=== PATIENT | male | born 1965 | race Two or more races ===

== ENCOUNTER 2022-12-03 16:06 | Emergency (ER) | payer OTHER ==
[~2022-12-03] VITALS: Ht 167.6 cm; Wt 79.4 kg
[2022-12-03] MEDS ORDERED: DICLOFENAC SODI75 MG PO (17:59)
[2022-12-03] MEDS ORDERED: NORFLEX100MG PO (17:59)
== END 2022-12-03 18:24 | disposition home or self-care (01) ==
LOC: ER 16:06
DX: M54.89 Other dorsalgia (principal)

== ENCOUNTER 2022-12-19 05:45 | Day surgery (SDC) | payer OTHER ==
[~2022-12-19] VITALS: Ht 167.6 cm; Wt 79.4 kg
[~2022-12-19 05:45] MED LIST: CANDESARTAN CILE8 M1 PO; DICLOFENAC SODI75 MG PO; NORFLEX100MG PO
== END 2022-12-19 16:20 | disposition home or self-care (01) ==
LOC: CIR.AMB 05:45
PROVIDERS: ATTEND Specialist
DX: K40.90 Unilateral inguinal hernia, without obstruction or gangrene, not specified as recurrent (principal); I10 Essential (primary) hypertension; Z20.822 Contact with and (suspected) exposure to COVID-19
CPT/HCPCS: 49505; C1781

== ENCOUNTER 2023-03-01 08:13 | Emergency (ER) | payer OTHER ==
[~2023-03-01] VITALS: Ht 167.6 cm; Wt 77.1 kg
== END 2023-03-01 14:38 | disposition home or self-care (01) ==
LOC: ER 08:13
DX: S76.912A Strain of unspecified muscles, fascia and tendons at thigh level, left thigh, initial encounter (principal); S76.911A Strain of unspecified muscles, fascia and tendons at thigh level, right thigh, initial encounter; X58.XXXA Exposure to other specified factors, initial encounter; Y93.9 Activity, unspecified; Y92.89 Other specified places as the place of occurrence of the external cause; Y99.9 Unspecified external cause status

== ENCOUNTER 2023-06-17 00:22 | Inpatient (IN) | payer OTHER ==
[~2023-06-17] VITALS: Ht 167.6 cm; Wt 86.2 kg
[2023-06-17] MEDS ORDERED: HYDROCHLOROTH12.5 MG (00:59)
[2023-06-17 08:54] LABS: HEMATOCRIT 37.5 % (39.0-48.0); HEMOGLOBIN 11.9 g/dL (13-16.00); MEAN CELL VOLUME 74.2 fL (80.0-100.00); MEAN CORPUSCULAR HEMOGLOBIN 23.5 pg (27.00-32.0); MEAN CORPUSCULAR HGB CONC 31.6 g/dl (32.0-36.0); PLATELET COUNT 402 K/uL (150-450); RED BLOOD COUNT 5.05 M/uL (4.00-6.00)
[2023-06-17 09:40] LABS: CALCIUM 9.5 mg/dL (8.5-10.1); CREATININE SERUM 0.92 mg/dL (0.70-1.30); GFR 84.2; POTASSIUM 3.12 mEq/L (3.5-5.1)
[2023-06-17 22:36] LABS: ABG PH 7.474 (7.35-7.45); ABG pCO2 36.8 mmHg (35-45); SaO2 97.7 %
[2023-06-17 22:37] LABS: BICARBONATE 26.4 mmol/l (23-25); Tco2 27.5 mmol/l; allen test SATISFACTORY; o2 21 %; puncture site RADIAL RIGHT
[2023-06-18 03:10] LABS: ALBUMIN 3.9 gm/dL (3.4-5.0); CALCIUM 9.5 mg/dL (8.5-10.1); CKMB 2.4 NG/ML (0.5-3.6); CREATININE SERUM 0.98 mg/dL (0.70-1.30); GFR 78.28; PHOSPHOROUS 4.3 mg/dL (2.5-4.9)
[2023-06-18 03:16] LABS: POTASSIUM 2.99 mEq/L (3.5-5.1)
[2023-06-18 06:27] LABS: HEMATOCRIT 35.9 % (39.0-48.0); HEMOGLOBIN 11.9 g/dL (13-16.00); MEAN CELL VOLUME 74.1 fL (80.0-100.00); MEAN CORPUSCULAR HEMOGLOBIN 24.5 pg (27.00-32.0); PLATELET COUNT 396 K/uL (150-450); RED BLOOD COUNT 4.85 M/uL (4.00-6.00); RED CELL DISTRIBUTION WIDTH 17.1 % (11.5-14.5)
[2023-06-18 06:47] LABS: INR 1.06; PARTIAL THROMBOPLASTIN TIME 33.9 SECONDS (22.0-34.0); PROTHROMBIN TIME 11.1 SECONDS (9.0-11.5)
[2023-06-18 06:53] LABS: ERYTHROCYTE SEDIMENTATION RATE 42 mm/hr
[2023-06-18 07:16] LABS: ALBUMIN 3.9 gm/dL (3.4-5.0); BILIRUBIN TOTAL 0.38 mg/dL (0.3-1.2); BILIRUBIN,CONJUGATED 0.1 mg/dL (0.0-0.2); BILIRUBIN,UNCONJUGATED 0.28 mg/dL (0.0-0.6); CALCIUM 9.3 mg/dL (8.5-10.1); CHOL HDL RATIO 3.3 (0-5.0); CREATININE SERUM 0.83 mg/dL (0.70-1.30); GFR 94.83; GLOBULINA 3.8 G/DL (2.4-3.5); POTASSIUM 3.25 mEq/L (3.5-5.1); TOTAL PROTEIN 7.7 gm/dL (6.4-8.2)
[2023-06-18 07:17] LABS: C-REACTIVE PROTEIN 3.72 MG/DL (0.00-0.29); CKMB 2.5 NG/ML (0.5-3.6)
[2023-06-18 11:29] LABS: URINE APPEARANCE Clear; URINE BILIRRUBIN Negative (NEGATIVE); URINE BLOOD Small; URINE COLOR Yellow; URINE GLUCOSE Negative (NEGATIVE); URINE LEUKOCYTE Negative; URINE NITRATE Negative; URINE PROTEIN Trace (NEGATIVE); URINE UROBILINOGEN 0.2 E.U./dl
[2023-06-18 11:33] LABS: URINE RBC 21.1 uL (0.0-20.8); URINE WBC 3.6 uL (0.0-23.2)
== END 2023-06-21 10:23 | disposition home or self-care (01) | DRG 305 ==
LOC: ER 00:22 → MEDJ 23:52
PROVIDERS: General Practice; ADMIT Internal Medicine; ATTEND Internal Medicine
PROC: B020ZZZ Computerized Tomography (CT Scan) of Brain (ICD-10-PCS; principal; 2023-06-17)
PROC: B345ZZZ Ultrasonography of Bilateral Common Carotid Arteries (ICD-10-PCS; 2023-06-17)
PROC: B348ZZZ Ultrasonography of Bilateral Internal Carotid Arteries (ICD-10-PCS; 2023-06-17)
PROC: 4A02XM4 Measurement of Cardiac Total Activity, External Approach (ICD-10-PCS; 2023-06-18)
PROC: 3E073KZ Introduction of Other Diagnostic Substance into Coronary Artery, Percutaneous Approach (ICD-10-PCS; 2023-06-18)
PROC: B246ZZZ Ultrasonography of Right and Left Heart (ICD-10-PCS; 2023-06-18)
PROC: 3E0F7GC Introduction of Other Therapeutic Substance into Respiratory Tract, Via Natural or Artificial Opening (ICD-10-PCS; 2023-06-18)
PROC: 4A12X4Z Monitoring of Cardiac Electrical Activity, External Approach (ICD-10-PCS; 2023-06-18)
DX: I16.9 Hypertensive crisis, unspecified (principal); I10 Essential (primary) hypertension; I35.1 Nonrheumatic aortic (valve) insufficiency; R42 Dizziness and giddiness; J45.909 Unspecified asthma, uncomplicated